=== PATIENT | male | born 1965 | race Caucasian/White ===

== ENCOUNTER 2018-07-26 01:47 | Emergency (ER) | payer SELFPAY ==
[2018-07-26] MEDS ORDERED: BUFFERED LIDOCAINE 10 ML SYRINGE SUBQ STA (01:58)
[2018-07-26] MEDS ORDERED: TETANUS/DIPHTHERIA/PERTUSSIS 0.5 ML SYRINGE IM ONE (03:13)
--- NOTE | 2018-07-26 03:16 | ED Physician Documentation ---
PD HPI LOWER EXT INJURY - Stated complaint Stated Complaint: L LEG LAC - Chief complaint Chief Complaint: Laceration - History obtained from History obtained from: Patient, Friend - History of Present Illness PD HPI LOW EXT INJURY LOCATION: Left, Lower leg Type of injury: Laceration Where injury occurred: Home Timing - onset: Today Timing - duration: Minutes Timing - details: Abrupt onset, Still present Improved by: Rest, Immobilization Worsened by: Moving, Palpating Associated symptoms: No: Weakness, Numbness, Tingling Contributing factors: No: Anticoagulated Similar symptoms before: Diagnosis (laceration) Recently seen: Not recently seen - Additional information Additional information: 52-year-old male was taking the garbage out when he went to step down on the garbage a broken bottle lacerated his left calf. He is in here now for suturing. He denies any numbness or tingling distal to the laceration. He is uncertain about his last tetanus. Review of Systems Constitutional: denies: Fever Nose: denies: Congestion Throat: denies: Sore throat Respiratory: denies: Cough GI: denies: Vomiting Skin: reports: Laceration (s) Musculoskeletal: reports: Extremity pain. denies: Neck pain, Back pain PD PAST MEDICAL HISTORY - Past Medical History Past Medical History: No - Past Surgical History Past Surgical History: Yes Ortho: Other - Present Medications Home Medications: Ambulatory Orders Medication Instructions Recorded Confirmed No Known Home Medications 07/26/18 07/26/18 - Allergies Allergies/Adverse Reactions: Allergies Allergy/AdvReac Type Severity Reaction Status Date / Time No Known Drug Allergies Allergy Verified 07/26/18 01:58 - Social History Does the pt smoke?: Yes Smoking Status: Current every day smoker Does the pt drink ETOH?: Yes Does the pt have substance abuse?: No - Immunizations Immunizations are current?: No PD ED PE NORMAL - Vitals Vital signs reviewed: Yes (hypertensive ) - General General: Alert and oriented X 3, No acute distress, Well developed/nourished - HEENT HEENT: Atraumatic, PERRL, EOMI - Respiratory Respiratory: No respiratory distress - Derm Derm: Normal color, Warm and dry, No rash - Extremities Extremities: No deformity, Other (6cm laceration to the mid calf on the left side laterally. Deep laceration to the facia of the muscle. Distal n/v is intact. The wound is clean and free of foreign body. ) - Neuro Neuro: Alert and oriented X 3, field sales executive 2-12 intact, No motor deficit, No sensory deficit, Normal speech Eye Opening: Spontaneous Motor: Obeys Commands Verbal: Oriented GCS Score: 15 - Psych Psych: Normal mood, Normal affect PD ED PE EXPANDED - Extremities CARMEN LE visual: 1 - laceration Results - Vitals Vitals: Vital Signs - 24 hr 07/26/18 07/26/18 01:52 03:18 Temperature 36.3 C L 36.3 C L Heart Rate 100 97 Respiratory 18 16 Rate Blood Pressure 160/113 H 173/114 H O2 Saturation 96 98 Oxygen O2 Source Room air Procedures - Laceration (location) left calf Length in cm: 6 Wound type: Linear, Into subcut fat, Clean Neurovascular status: Sensory intact, Motor intact, Vascular intact Anesthesia: Lidocaine 1%, With bicarb Wound Preparation: Hibiclens, Irrigated copiously NS, Wound explored, To the base Skin layer closure: Nylon, Dermabond (to the top layer), Interrupted (horizontal matress), Size #-0 - enter number (4-0) Other: Patient tolerated well, No complications, Neurovascular intact, Tetanus booster given Complexity: Simple PD MEDICAL DECISION MAKING - ED course Complexity details: re-evaluated patient, considered differential, d/w patient, d/w family ED course: 52-year-old male with a deep laceration to his left lateral calf has his wound cleaned and sutured he tolerates this well. Departure - Departure Disposition: 01 Home, Self Care Clinical Impression: Laceration of calf Condition: Stable Instructions: ED Laceration All Follow-Up: [facility] [Provider Group] Comments: Sutures should be removed in 10-14 days. Discharge Date/Time: 07/26/18 03:24
[2018-07-26 03:19] VITALS: BP 173/114
== END 2018-07-26 03:24 | disposition home or self-care (01) ==
LOC: ED 01:47
DX: S81.812A Laceration without foreign body, left lower leg, initial encounter (principal); W25.XXXA Contact with sharp glass, initial encounter; Y93.E9 Activity, other interior property and clothing maintenance; Y92.009 Unspecified place in unspecified non-institutional (private) residence as the place of occurrence of the external cause
CPT/HCPCS: 12002; 90471; 99282; 99283

== ENCOUNTER 2018-10-01 23:19 | Outpatient (CLI) | payer MEDICAID | END 2018-10-01 23:20 | disposition critical access hospital (66) | LOC: EMS 23:19 | PROVIDERS: ATTEND Surgery | DX: S09.90XA Unspecified injury of head, initial encounter (principal); M54.9 Dorsalgia, unspecified; M79.662 Pain in left lower leg; W10.8XXA Fall (on) (from) other stairs and steps, initial encounter; Y92.89 Other specified places as the place of occurrence of the external cause | CPT/HCPCS: A0425; A0429; A0999 ==

== ENCOUNTER 2018-10-01 23:35 | Emergency (ER) | payer MEDICAID ==
--- NOTE | 2018-10-02 00:32 | ED Physician Documentation ---
PD HPI HEAD INJURY - Stated complaint Stated Complaint: FALL DOWN STAIRS - Chief complaint Chief Complaint: Trauma Hd/Nk - History obtained from History obtained from: Patient, Friend, EMS - History of Present Illness Mechanism of head injury: Fell (he was witnessed to fall down some steps while intoxicated and strike the back of his head. Reported LOC for 30 seconds or so. No seizure. Awoke and was talkative. Seemed a bit confused. No vomiting. EMS called by friend. Patient did not want to come but EMS said they "talked him into it". Arrives on backboard with collar. Moving all extremities and is conversant, with smell of alcohol on breath.) Timing - onset: How many minutes ago (30), Today Location of injury: Back Quality of pain: Aching (he says he has just mild pain in back of head.) Associated symptoms: LOC. No: Nausea / vomiting, Neck pain, Paresthesias, Seizures Symptoms improve with: Rest Symptoms worsen with: Palpation. No: Movement Contributing factors: Intoxicated. No: Anticoagulated Similar symptoms before: Has not had sx before Recently seen: Not recently seen Review of Systems Constitutional: denies: Fever (denies recent illness) Nose: denies: Rhinorrhea / runny nose, Congestion Throat: denies: Sore throat Respiratory: denies: Cough GI: denies: Nausea, Vomiting Skin: reports: Abrasion (s) (back of head) Musculoskeletal: reports: Back pain (says he is hurting some left posterolateral chest/ribs area. Denies mid back pain nor abd pain.). denies: Neck pain Neurologic: denies: Focal weakness, Numbness PD PAST MEDICAL HISTORY - Past Medical History Past Medical History: No Neuro: None Endocrine/Autoimmune: None - Past Surgical History Past Surgical History: Yes Ortho: Other - Present Medications Home Medications: Ambulatory Orders Medication Instructions Recorded Confirmed Hydrocodone/Acetaminophen 1 - 2 each PO Q6H PRN #14 tablet 10/02/18 [Hydrocodon-Acetaminophen 5-325] Naproxen 500 mg PO BID #20 tablet 10/02/18 - Allergies Allergies/Adverse Reactions: Allergies Allergy/AdvReac Type Severity Reaction Status Date / Time No Known Drug Allergies Allergy Verified 10/02/18 02:17 - Social History Does the pt smoke?: Yes Smoking Status: Current every day smoker Does the pt drink ETOH?: Yes Does the pt have substance abuse?: No - Immunizations Immunizations are current?: No PD ED PE NORMAL - Vitals Vital signs reviewed: Yes - General General: Alert and oriented X 3 (he is able to answer questions. Some slight slurring of speech initially. Removed from board after neuro exam showing normal motor/sensory. ), No acute distress, Well developed/nourished - HEENT HEENT: Pharynx benign, Dentition benign, Other (small abrasion and swelling back of head. ) - Neck Neck: Supple, no meningeal sign, No bony TTP, No adenopathy - Cardiac Cardiac: RRR, No murmur - Respiratory Respiratory: Clear bilaterally, Other (mild tenderness posterolateral left mid ribs and inferoscapular area. ) - Abdomen Abdomen: Soft, Non tender - Back Back: No spinal TTP - Derm Derm: Normal color, Warm and dry - Extremities Extremities: No tenderness to palpate, Normal ROM s pain - Neuro Neuro: Alert and oriented X 3, No motor deficit, No sensory deficit Eye Opening: Spontaneous Motor: Obeys Commands Verbal: Oriented GCS Score: 15 Results - Vitals Vitals: Vital Signs - 24 hr 10/01/18 10/02/18 23:39 00:38 Temperature 36.1 C L Heart Rate 99 92 Respiratory 17 18 Rate Blood Pressure 161/98 H 119/105 H O2 Saturation 100 97 Oxygen O2 Source Room air PD MEDICAL DECISION MAKING - ED course Complexity details: re-evaluated patient (he was in ER not too long, and was able to ambulate to bathroom unassisted. He is alert and conversant. Still normal neuro. He is with friend. He asks to be discharged. I offer to have him stay here a bit longer to ensure no progressive of head injury symptoms and he says he wants to head home with friend. He seems able to understand concern and is aware of symptoms to watch for. I felt discharge was reasonable. ), considered differential (given the intoxication and report of LOC, I did suggest to patient to get CT head. He said he did not feel he needed it, as minimal to no headache and only at area of contusion. Will have him in ER awhile to ensure no progressive symptoms.), d/w patient Departure - Departure Disposition: 01 Home, Self Care Clinical Impression: Scalp contusion Qualifiers: Encounter type: initial encounter Qualified Code(s): S00.03XA - Contusion of scalp, initial encounter Mild concussion Qualifiers: Encounter type: initial encounter Loss of consciousness presence/duration: with LOC of 30 min or less Qualified Code(s): S06.0X1A - Concussion with loss of consciousness of 30 minutes or less, initial encounter Condition: Stable Record reviewed to determine appropriate education?: Yes Instructions: ED Head Injury Closed Comments: Tylenol or ibuprofen if needed for headache. No further alcohol tonight. Return if worsening headache, confusion, repetitive vomiting, focal weakness or other concern. Discharge Date/Time: 10/02/18 00:38
[2018-10-02 00:39] VITALS: BP 119/105
== END 2018-10-02 00:38 | disposition home or self-care (01) ==
LOC: EDUNIT# → ED 23:35
DX: S06.0X1A Concussion with loss of consciousness of 30 minutes or less, initial encounter (principal); S00.03XA Contusion of scalp, initial encounter; S00.01XA Abrasion of scalp, initial encounter; W10.9XXA Fall (on) (from) unspecified stairs and steps, initial encounter; F10.920 Alcohol use, unspecified with intoxication, uncomplicated
CPT/HCPCS: 80053; 80320; 83690; 85025; 99283

== ENCOUNTER 2018-10-02 00:59 | Emergency (ER) | payer MEDICAID ==
[2018-10-02] MEDS ORDERED: ACETAMINOPHEN 325 MG TABLET PO STA (01:52)
[2018-10-02] MEDS ORDERED: KETOROLAC 60 MG/2 ML VIAL IM STA (01:52)
--- NOTE | 2018-10-02 02:03 | XRAY Report ---
Reason: left rib pain after falling down stairs Procedure Date: 10/02/2018 Accession Number: [id number] / [id number] Procedure: XR - Chest 2 View X-Ray CPT Code: 44350 FULL RESULT: EXAM: CHEST RADIOGRAPHY EXAM DATE: 10/02/2018 01:45 AM. CLINICAL HISTORY: Left-sided lower pain, trauma, COMPARISON: None. TECHNIQUE: 2 views. FINDINGS: Lungs/Pleura: No focal opacities evident. No pleural effusion. No pneumothorax. Normal volumes. Mediastinum: Heart and mediastinal contours are unremarkable. Other: Right hemidiaphragm eventration. Moderate thoracic degenerative change. IMPRESSION: No acute cardiopulmonary abnormality demonstrated. RADIA
--- NOTE | 2018-10-02 02:28 | ED Physician Documentation ---
PD HPI Fall - Stated complaint Stated Complaint: L RIB PX - Chief complaint Chief Complaint: General - History obtained from History obtained from: Patient - History of Present Illness Mechanism of injury: Lost balance Fall distance: Standing position Where injury occurred: Home (he was just seen in ED and asked to be discharged. See prior ER note. In waiting room, a family member arrived and convinced patient to be seen again. Patient with more pain in posterior left chest now. Still denies general headache.) Injury(ies) location: Head, Chest, Back Recently seen: Emergency Dept (just 1/2 hour ago, so please refer to that note.) Review of Systems Skin: reports: Abrasion (s). denies: Laceration (s) PD PAST MEDICAL HISTORY - Past Medical History Past Medical History: No - Past Surgical History Past Surgical History: Yes Ortho: Other - Present Medications Home Medications: Ambulatory Orders Medication Instructions Recorded Confirmed Hydrocodone/Acetaminophen 1 - 2 each PO Q6H PRN #14 tablet 10/02/18 [Hydrocodon-Acetaminophen 5-325] Naproxen 500 mg PO BID #20 tablet 10/02/18 - Allergies Allergies/Adverse Reactions: Allergies Allergy/AdvReac Type Severity Reaction Status Date / Time No Known Drug Allergies Allergy Verified 10/02/18 02:17 - Social History Does the pt smoke?: Yes Smoking Status: Current every day smoker Does the pt drink ETOH?: Yes Does the pt have substance abuse?: No - Immunizations Immunizations are current?: No PD ED PE NORMAL - Vitals Vital signs reviewed: Yes - General General: Alert and oriented X 3, No acute distress, Well developed/nourished - HEENT HEENT: Other (same abrasion with mild swelling occiput as recent visit. Not expanding. ) - Neck Neck: Supple, no meningeal sign, No bony TTP, No adenopathy - Respiratory Respiratory: Clear bilaterally - Abdomen Abdomen: Soft, Non tender - Back Back: No CVA TTP, No spinal TTP (but some tenderness still left posterolateral back/ribs without crepitance. ) - Extremities Extremities: No tenderness to palpate, Normal ROM s pain Results - Vitals Vitals: Vital Signs - 24 hr 10/02/18 10/02/18 10/02/18 01:01 02:16 02:53 Temperature 36.4 C L 36.5 C Heart Rate 97 87 90 Respiratory 18 16 17 Rate Blood Pressure 167/95 H 138/95 H 165/97 H O2 Saturation 100 100 100 Oxygen O2 Source Room air - Rads (name of study) chest xray Radiology: Prelim report reviewed (no fractures nor acute lung injury. ), EMP read contemporaneously, See rad report PD MEDICAL DECISION MAKING - ED course Complexity details: considered differential (Patient without concussive symptoms here and still prefers not having head CT. He is alert and normal neuro that I think that a CT is not necessary at this point, and he will be with others at home. ), d/w patient Departure - Departure Disposition: Home, Self Care Clinical Impression: Accidental fall Qualifiers: Encounter type: initial encounter Qualified Code(s): W19.XXXA - Unspecified fall, initial encounter Chest wall contusion Qualifiers: Encounter type: initial encounter Laterality: left Qualified Code(s): S20.212A - Contusion of left front wall of thorax, initial encounter Scalp contusion Qualifiers: Encounter type: initial encounter Qualified Code(s): S00.03XA - Contusion of scalp, initial encounter Condition: Stable Record reviewed to determine appropriate education?: Yes Instructions: ED Contusion Chest Wall Prescriptions: Hydrocodone/Acetaminophen [Hydrocodon-Acetaminophen 5-325] 1 - 2 each PO Q6H PRN #14 tablet PRN Reason: pain Naproxen 500 mg PO BID #20 tablet Comments: There are no rib fractures seen on x-ray. This is pretty good for picking up on displaced fractures. Is not completely accurate so there is the potential for nondisplaced fracture of the rib. This would get treated with anti- inflammatories, modified activity and pain medicine if needed. Most likely is just some bruising and strain of the chest wall and would be treated the same way and should improve over several days to week. There is no signs of injury to the lung itself and the x-ray is very good for that. Discharge Date/Time: 10/02/18 02:55
[2018-10-02 02:55] VITALS: BP 165/97
== END 2018-10-02 02:55 | disposition home or self-care (01) ==
LOC: ED 00:59
DX: S06.0X1A Concussion with loss of consciousness of 30 minutes or less, initial encounter (principal); S20.212A Contusion of left front wall of thorax, initial encounter; S00.03XA Contusion of scalp, initial encounter; S00.01XA Abrasion of scalp, initial encounter; W10.9XXA Fall (on) (from) unspecified stairs and steps, initial encounter; F10.920 Alcohol use, unspecified with intoxication, uncomplicated; F17.200 Nicotine dependence, unspecified, uncomplicated
CPT/HCPCS: 71046; 96372; 99283; A9270

== ENCOUNTER 2019-01-13 08:00 | Outpatient (CLI) | payer MEDICAID ==
[2019-01-13 19:07] LABS: BASOPHILS # (AUTO) 0.1 10^3/uL (0.0-0.1); BASOPHILS % (AUTO) 0.7 %; EOSINOPHILS % (AUTO) 0.2 %; LYMPHOCYTES % (AUTO) 22.6 %; MEAN CORPUSCULAR HEMOGLOBIN 32.8 pg (27.0-31.0); MEAN CORPUSCULAR HGB CONC 33.3 g/dL (32.0-36.0); MEAN CORPUSCULAR VOLUME 98.5 fL (80.0-94.0); MEAN PLATELET VOLUME 10.5 fL (7.4-11.4); MONOCYTES # (AUTO) 0.7 10^3/uL (0.0-1.0); MONOCYTES % (AUTO) 7.8 %; NEUTROPHILS # (AUTO) 5.9 10^3/uL (1.5-6.6); NEUTROPHILS % (AUTO) 68.2 %; PLT - PLATELET COUNT 264 10^3/uL (130-450); RED BLOOD COUNT 4.58 10^6/uL (4.70-6.10); RED CELL DISTRIBUTION WIDTH 14.1 % (12.0-15.0); WHITE BLOOD COUNT 8.7 x10^3/uL (4.8-10.8)
[2019-01-13 19:40] LABS: ALBUMIN 4.4 g/dL (3.2-5.5); ALBUMIN/GLOBULIN RATIO 1.2 (1.0-2.2); ALKALINE PHOSPHATASE 61 IU/L (42-121); ALT ALANINE AMINOTRANSFERASE 15 IU/L (10-60); AST ASPARTATE AMINOTRANSFERASE 21 IU/L (10-42); BILIRUBIN,TOTAL 0.8 mg/dL (0.2-1.0); BUN - BLOOD UREA NITROGEN 13 mg/dL (6-20); CALCIUM 9.6 mg/dL (8.5-10.3); CARBON DIOXIDE - CO2 25 mmol/L (21-32); CHLORIDE 105 mmol/L (101-111); CHOL/HDL RATIO 1.8 (<5.0); CHOLESTEROL 197 mg/dL; CREATININE 0.7 mg/dL (0.6-1.2); GFR - MDRD 117 (>89); GLUCOSE 100 mg/dL (70-100); HDL CHOLESTEROL 111 mg/dL; LDL CHOLESTEROL,CALCULATED 77 mg/dL; LDL/HDL RATIO 0.7 (<3.6); SODIUM 140 mmol/L (135-145); TOTAL PROTEIN 8.1 g/dL (6.7-8.2); VLDL CHOLESTEROL 9 mg/dL
[2019-01-13 19:55] LABS: HB2 TOTAL 15.6 g/dL; HEMOGLOBIN A1C 0.49 g/dL
== END 2019-01-13 23:59 | disposition home or self-care (01) ==
LOC: LAB.N 08:00
PROVIDERS: ATTEND Family Medicine
DX: I10 Essential (primary) hypertension (principal); Z13.1 Encounter for screening for diabetes mellitus
CPT/HCPCS: 36415; 80050; 80061; 83036; 83721

== ENCOUNTER 2020-03-09 08:00 | Outpatient (CLI) | payer MEDICAID | END 2020-03-09 23:59 | disposition home or self-care (01) | LOC: LAB.R 08:00 | PROVIDERS: ATTEND Family Medicine | DX: Z20.2 Contact with and (suspected) exposure to infections with a predominantly sexual mode of transmission (principal) | CPT/HCPCS: 81599; 87491; 87591 ==

== ENCOUNTER 2020-06-22 11:45 | Outpatient (CLI) | payer MEDICAID ==
[2020-06-22 18:45] LABS: BASOPHILS # (AUTO) 0.1 10^3/uL (0.0-0.1); BASOPHILS % (AUTO) 0.6 %; EOSINOPHILS # (AUTO) 0.1 10^3/uL (0.0-0.7); EOSINOPHILS % (AUTO) 0.9 %; HGB - HEMOGLOBIN 14.6 g/dL (14.0-18.0); LYMPHOCYTES # (AUTO) 3.3 10^3/uL (1.5-3.5); MEAN CORPUSCULAR HEMOGLOBIN 33.3 pg (27.0-31.0); MEAN CORPUSCULAR HGB CONC 33.6 g/dL (32.0-36.0); MEAN CORPUSCULAR VOLUME 99.1 fL (80.0-94.0); MEAN PLATELET VOLUME 9.9 fL (7.4-11.4); MONOCYTES # (AUTO) 0.8 10^3/uL (0.0-1.0); MONOCYTES % (AUTO) 7.4 %; NEUTROPHILS # (AUTO) 6.7 10^3/uL (1.5-6.6); NEUTROPHILS % (AUTO) 60.6 %; PLT - PLATELET COUNT 290 10^3/uL (130-450); RED BLOOD COUNT 4.39 10^6/uL (4.70-6.10); RED CELL DISTRIBUTION WIDTH 13.4 % (12.0-15.0); WHITE BLOOD COUNT 11.1 x10^3/uL (4.8-10.8)
[2020-06-22 19:40] LABS: ALBUMIN 4.4 g/dL (3.2-5.5); ALBUMIN/GLOBULIN RATIO 1.2 (1.0-2.2); ALKALINE PHOSPHATASE 62 IU/L (42-121); ALT ALANINE AMINOTRANSFERASE 32 IU/L (10-60); AST ASPARTATE AMINOTRANSFERASE 32 IU/L (10-42); BILIRUBIN,TOTAL 1.1 mg/dL (0.2-1.0); BUN - BLOOD UREA NITROGEN 24 mg/dL (6-20); CALCIUM 9.8 mg/dL (8.5-10.3); CARBON DIOXIDE - CO2 25 mmol/L (21-32); CHLORIDE 99 mmol/L (101-111); CHOL/HDL RATIO 1.6 (<5.0); CHOLESTEROL 199 mg/dL; CREATININE 0.7 mg/dL (0.6-1.2); GLUCOSE 84 mg/dL (70-100); HDL CHOLESTEROL 125 mg/dL; TOTAL PROTEIN 8.2 g/dL (6.7-8.2)
== END 2020-06-22 23:59 | disposition home or self-care (01) ==
LOC: LAB.WCP 11:45
PROVIDERS: ATTEND Family Medicine
DX: E66.9 Obesity, unspecified (principal); I10 Essential (primary) hypertension; F17.200 Nicotine dependence, unspecified, uncomplicated
CPT/HCPCS: 36415; 80050; 80061; 83721; 84153

== ENCOUNTER 2020-07-28 01:42 | Emergency (ER) | payer MEDICAID ==
[2020-07-28] MEDS ORDERED: HYDROcod/ACETAM 5/325 MG TABLET PO STA (02:33)
--- NOTE | 2020-07-28 02:36 | ED Physician Documentation ---
PD HPI LOWER EXT INJURY - Stated complaint Stated Complaint: R TOE PX, BLEEDING - Chief complaint Chief Complaint: Ext Problem - History obtained from History obtained from: Patient, Caregiver - History of Present Illness PD HPI LOW EXT INJURY LOCATION: Right, Toe (great) Type of injury: Other (unkonw) Where injury occurred: Home Timing - onset: How many days ago (3) Timing - duration: Days (3) Timing - details: Gradual onset, Still present, Waxing and waning Pain level max: >10 Pain level now: 8 Improved by: Rest Worsened by: Moving, Palpating Associated symptoms: Other (bleeding from under the nail.). No: Weakness, Numbness, Tingling, Swelling Similar symptoms before: Has not had sx before Recently seen: Not recently seen - Additional information Additional information: 54-year-old male comes into the emergency department complaining of right great toe pain. He has some blood from underneath the nail and he has severe pain anytime the nail is touched or is even looked at. He comes into the emergency department with some anger and wants his pain to go away. He seems a bit unreasonable about this. He appears to be in pain. He gives a history that his partner has been trimming his nail for the past year because of an ingrown toenail that was trimmed about 3 days ago and then he had something happen where he went to put his shoe on and lifted a portion of the nail that is now bleeding and he is in severe pain. Review of Systems Constitutional: denies: Fever Respiratory: denies: Cough GI: denies: Vomiting PD PAST MEDICAL HISTORY - Past Medical History Past Medical History: Yes Cardiovascular: Hypertension - Past Surgical History Past Surgical History: Yes Ortho: Other - Present Medications Home Medications: Ambulatory Orders Medication Instructions Recorded Confirmed HYDROcod/ACETAM 5/325 [[place] 5/325] 1 - 2 ea PO Q6H PRN #12 tab 07/28/20 Losartan Potassium [Cozaar] 100 mg PO DAILY 07/28/20 07/28/20 hydroCHLOROthiazide 50 mg PO DAILY 07/28/20 07/28/20 [Hydrochlorothiazide] - Allergies Allergies/Adverse Reactions: Allergies Allergy/AdvReac Type Severity Reaction Status Date / Time No Known Drug Allergies Allergy Verified 07/28/20 01:56 - Social History Does the pt smoke?: No Smoking Status: Never smoker Does the pt drink ETOH?: Yes Does the pt have substance abuse?: No - Immunizations Immunizations are current?: No PD ED PE NORMAL - Vitals Vital signs reviewed: Yes - General General: Alert and oriented X 3, Well developed/nourished, Other (The patient appears to be 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 and short temper) - HEENT HEENT: Atraumatic, PERRL, EOMI - Respiratory Respiratory: No respiratory distress - Derm Derm: Normal color, Warm and dry, No rash - Extremities Extremities: No deformity, No edema, Other (Right great toe is partially avulsed distally and extremely painful for the patient there is an ingrown toenail on that side and there does not appear to be any infection involved with this.) - Neuro Neuro: Alert and oriented X 3, patient relations manager 2-12 intact, No motor deficit, No sensory deficit, Normal speech Eye Opening: Spontaneous Motor: Obeys Commands Verbal: Oriented GCS Score: 15 - Psych Psych: Other (Mood is painful affect is flat) Results - Vitals Vitals: Vital Signs - 24 hr 07/28/20 07/28/20 07/28/20 01:53 05:05 05:51 Temperature 36.4 C L 36.9 C 36.9 C Heart Rate 117 H 98 86 Respiratory 16 18 18 Rate Blood Pressure 135/81 H 146/76 H 154/102 H O2 Saturation 97 100 98 Oxygen O2 Source Room air Procedures - General procedure General procedure: Ingrown toenail removal: With use of a 50-50 mixture of 1% lidocaine and 1/2% bupivacaine a digital block is performed on the recruit right great toe after preparation with chlorhexidine. The toe was draped and cleansed with Hibiclens and the nail is sectioned medially and the medial section is removed. PD MEDICAL DECISION MAKING - ED course Complexity details: reviewed results, re-evaluated patient, considered differential, d/w patient ED course: 54-year-old male presents to the emergency department with severe pain in his left great toe. Right great toe. It looks like he has partially avulsed the nail. When he first arrived he would not allow us to touch this and wanted the pain to be gone. We did provide some pain medication and the patient stated this did not seem to help much but he was in a little better spirits and was a ble to provide more history and apparently his partner has been trimming his nails for the past year because of an ingrown toenail and he does not have any inflammation to this now but has recently had the nail clipped and now is a partial avulsion which he thinks might of happened when he put his shoe on. There is some bleeding underneath the nail and the nail appears to be grown in on the medial aspect. There is no current infection.I did offer to section the nail and the patient readily accepted this.This was performed with a digital block and the patient tolerated this well. The nail does appear to be partially avulsed. Departure - Departure Disposition: 01 Home, Self Care Clinical Impression: Ingrown toenail without infection Nail avulsion of toe Qualifiers: Encounter type: initial encounter Qualified Code(s): S91.209A - Unspecified open wound of unspecified toe(s) with damage to nail, initial encounter Condition: Stable Instructions: ED Ingrown Toenail Excised, ED Avulsion Nail Complete Follow-Up: Hermilo Ulloa MD [Primary Care Provider] - Prescriptions: HYDROcod/ACETAM 5/325 [[place] 5/325] 1 - 2 ea PO Q6H PRN #12 tab PRN Reason: Pain Discharge Date/Time: 07/28/20 05:52
[2020-07-28] MEDS ORDERED: BUFFERED LIDOCAINE 10 ML SYRINGE SUBQ STA (04:43)
[2020-07-28] MEDS ORDERED: BUPIVACAINE 0.5% PF 10 ML VIAL SUBQ STA (04:43)
[2020-07-28 05:53] VITALS: BP 154/102
--- NOTE | 2020-07-28 08:50 | XRAY Report ---
PROCEDURE: Toe(s) RT INDICATIONS: great toe pain nail bleeding TECHNIQUE: 3 views of the first toe(s) acquired. COMPARISON: None FINDINGS: Bones: No fractures or dislocations. No suspicious bony lesions. Soft tissues: No suspicious soft tissue densities. IMPRESSION: No trauma found, no bony remodeling identified in the subungual space. Reviewed by: Michele Bhakta MD on 07/28/2020 8:48 AM [facility] Approved by: Michele Bhakta MD on 07/28/2020 8:48 AM [facility] Station ID: [id number]
== END 2020-07-28 05:52 | disposition home or self-care (01) ==
LOC: ED 01:42
DX: L60.0 Ingrowing nail (principal); S91.201A Unspecified open wound of right great toe with damage to nail, initial encounter; W22.8XXA Striking against or struck by other objects, initial encounter; Y93.89 Activity, other specified; Y92.009 Unspecified place in unspecified non-institutional (private) residence as the place of occurrence of the external cause; I10 Essential (primary) hypertension
CPT/HCPCS: 11765; 73660; 99282; 99283; A9270

== ENCOUNTER 2020-12-08 22:02 | Emergency (ER) | payer MEDICAID ==
--- NOTE | 2020-12-08 22:13 | ED Physician Documentation ---
PD HPI HEAD INJURY - Stated complaint Stated Complaint: FELL OFF STAIRS/HEAD INJ - Chief complaint Chief Complaint: Trauma Hd/Nk - History obtained from History obtained from: Patient, Family (spouse (in ED at bedside)) - History of Present Illness Mechanism of head injury: Fell Where head injury occurred: Home Timing - onset: How many hours ago (2) Pain level now: 2 Location of injury: Left Quality of pain: Pain Associated symptoms: AMS (patient's noted mild confusion after he fell), Neck pain. 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 struck head but denies LOC, denies ROOT. 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 Patient's chief complaint is pain from left side of neck to left shoulder (he points to left mastoid process regarding the origin of the neck pain and then points along the left trapezial ridge) Review of Systems Eyes: denies: Loss of vision, Decreased vision Cardiac: reports: Reviewed and negative Respiratory: reports: Reviewed and negative Skin: reports: Abrasion (s) (forehead) Musculoskeletal: reports: Neck pain, Joint pain (left shoulder) Neurologic: reports: Head injury. denies: Generalized weakness, Focal weakness, Numbness, Headache, LOC PD PAST MEDICAL HISTORY - Past Medical History Cardiovascular: Hypertension - Past Surgical History Past Surgical History: Yes Ortho: Other - Present Medications Home Medications: Ambulatory Orders Medication Instructions Recorded Confirmed HYDROcod/ACETAM 5/325 [[place] 5/325] 1 - 2 ea PO Q6H PRN #12 tab 07/28/20 Losartan Potassium [Cozaar] 100 mg PO DAILY 07/28/20 07/28/20 hydroCHLOROthiazide 50 mg PO DAILY 07/28/20 07/28/20 [Hydrochlorothiazide] Cyclobenzaprine [Flexeril] 10 mg PO TID PRN #20 tablet 12/08/20 Ibuprofen [Motrin] 600 mg PO Q6H PRN #20 tab 12/08/20 - Allergies Allergies/Adverse Reactions: Allergies Allergy/AdvReac Type Severity Reaction Status Date / Time No Known Drug Allergies Allergy Verified 07/28/20 01:56 - Social History Does the pt smoke?: Yes Smoking Status: Current every day smoker Does the pt drink ETOH?: Yes Does the pt have substance abuse?: No - Immunizations Immunizations are current?: No PD ED PE NORMAL - Vitals Vital signs reviewed: Yes - General General: Alert and oriented X 3, No acute distress, Well developed/nourished, Other (patient appears and sounds angry during HPI/ROS) - HEENT HEENT: PERRL, EOMI, Other (left forehead abrasion, mild TTP, mild swelling) - Neck Neck: No bony TTP - Cardiac Cardiac: RRR, No murmur - Respiratory Respiratory: No respiratory distress, Clear bilaterally - Extremities Extremities: No deformity, No tenderness to palpate, Normal ROM s pain, No edema - Neuro Neuro: Alert and oriented X 3, behavior support specialist 2-12 intact, No motor deficit, No sensory deficit Eye Opening: Spontaneous Motor: Obeys Commands Verbal: Oriented GCS Score: 15 Results - Vitals Vitals: Oxygen O2 Source Room air - Rads (name of study) CTH Radiology: Prelim report reviewed, See rad report PD MEDICAL DECISION MAKING - ED course Complexity details: reviewed results, re-evaluated patient, considered differential, d/w patient, d/w family ED course: unremarkable CTH. CT neck is not performed, as his pain is distinctly limited to left mastoid process (without TTP) and there is no neck tenderness on exam. He also indicates the pain is along the trapezius ridge, and there is no bony tenderness including left shoulder and along the left clavicle. This distribution is highly suggestive of muscle strain rather than bony injury. Departure - Departure Disposition: 01 Home, Self Care Clinical Impression: Skin tear Cervical sprain Qualifiers: Encounter type: initial encounter Qualified Code(s): S13.9XXA - Sprain of joints and ligaments of unspecified parts of neck, initial encounter Fall Qualifiers: Encounter type: initial encounter Qualified Code(s): W19.XXXA - Unspecified fall, initial encounter Condition: Good Instructions: ED Abrasion, ED Sprain Strain Neck Follow-Up: Hermilo Ulloa MD [Primary Care Provider] - (3-5 days if not improving) Prescriptions: Cyclobenzaprine [Flexeril] 10 mg PO TID PRN #20 tablet PRN Reason: Spasms Ibuprofen [Motrin] 600 mg PO Q6H PRN #20 tab PRN Reason: Pain Discharge Date/Time: 12/09/20 00:02
[2020-12-08] MEDS ORDERED: CYCLOBENZAPRINE 10 MG TABLET PO STA (22:23)
[2020-12-08] MEDS ORDERED: IBUPROFEN 600 MG TABLET PO STA (22:23)
[2020-12-09 00:04] VITALS: BP 138/88
--- NOTE | 2020-12-09 08:09 | CT Report ---
PROCEDURE: HEAD WO INDICATIONS: fall, head injury, LOC TECHNIQUE: Noncontrast 4.5 mm thick angled axial sections acquired from the foramen magnum to the vertex. For r adiation dose reduction, the following was used: automated exposure control, adjustment of mA and/or kV according to patient size. COMPARISON: None. FINDINGS: Image quality: Excellent. CSF spaces: Basal cisterns are patent. No extra-axial fluid collections. Ventricles are normal in size and shape. Brain: No midline shift. No intracranial masses or hemorrhage. Osorio-white matter interface is norm al. Skull and face: Calvarium and visualized facial bones are intact, without suspicious lesions. Sinuses: Visualized sinuses and mastoids are clear. IMPRESSION: 1. No CT evidence of acute intracranial trauma. 2. No fracture or significant soft tissue trauma. 3. Concordant with preliminary report. Reviewed by: Norma Douglas MD on 12/09/2020 8:08 AM PDT Approved by: Norma Douglas MD on 12/09/2020 8:08 AM PDT Station ID: [id number]
== END 2020-12-09 00:02 | disposition home or self-care (01) ==
LOC: ED 22:02
DX: S00.81XA Abrasion of other part of head, initial encounter (principal); S13.9XXA Sprain of joints and ligaments of unspecified parts of neck, initial encounter; W10.9XXA Fall (on) (from) unspecified stairs and steps, initial encounter; Y92.009 Unspecified place in unspecified non-institutional (private) residence as the place of occurrence of the external cause; I10 Essential (primary) hypertension; F17.200 Nicotine dependence, unspecified, uncomplicated
CPT/HCPCS: 70450; 99284; A9270

== ENCOUNTER 2021-05-13 15:00 | Outpatient (CLI) | payer MEDICAID | END 2021-05-13 23:59 | disposition home or self-care (01) | LOC: LAB.N 15:00 | PROVIDERS: ATTEND Family Medicine | DX: U07.1 COVID-19 (principal) | CPT/HCPCS: 87275; 87276 ==

== ENCOUNTER 2021-08-15 10:57 | Outpatient (CLI) | payer MEDICAID ==
[2021-08-15 18:01] LABS: BASOPHILS # (AUTO) 0.1 10^3/uL (0.0-0.1); BASOPHILS % (AUTO) 0.8 %; EOSINOPHILS # (AUTO) 0.2 10^3/uL (0.0-0.7); EOSINOPHILS % (AUTO) 1.9 %; HCT - HEMATOCRIT 43.3 % (42.0-52.0); HGB - HEMOGLOBIN 14.4 g/dL (14.0-18.0); LYMPHOCYTES # (AUTO) 3.1 10^3/uL (1.5-3.5); LYMPHOCYTES % (AUTO) 28.7 %; MEAN CORPUSCULAR HEMOGLOBIN 32.4 pg (27.0-31.0); MEAN CORPUSCULAR HGB CONC 33.3 g/dL (32.0-36.0); MEAN CORPUSCULAR VOLUME 97.5 fL (80.0-94.0); MEAN PLATELET VOLUME 9.8 fL (7.4-11.4); MONOCYTES # (AUTO) 0.8 10^3/uL (0.0-1.0); MONOCYTES % (AUTO) 7.1 %; NEUTROPHILS # (AUTO) 6.5 10^3/uL (1.5-6.6); NEUTROPHILS % (AUTO) 61.3 %; PLT - PLATELET COUNT 320 10^3/uL (130-450); RED BLOOD COUNT 4.44 10^6/uL (4.70-6.10); RED CELL DISTRIBUTION WIDTH 13.6 % (12.0-15.0); WHITE BLOOD COUNT 10.6 x10^3/uL (4.8-10.8)
[2021-08-15 18:15] LABS: ALBUMIN 4.1 g/dL (3.2-5.5); ALBUMIN/GLOBULIN RATIO 1.1 (1.0-2.2); ALKALINE PHOSPHATASE 65 IU/L (42-121); ALT ALANINE AMINOTRANSFERASE 27 IU/L (10-60); AST ASPARTATE AMINOTRANSFERASE 32 IU/L (10-42); BILIRUBIN,TOTAL 0.6 mg/dL (0.2-1.0); BUN - BLOOD UREA NITROGEN 13 mg/dL (6-20); CALCIUM 9.8 mg/dL (8.5-10.3); CARBON DIOXIDE - CO2 27 mmol/L (21-32); CHLORIDE 99 mmol/L (101-111); CHOL/HDL RATIO 1.9 (<5.0); CHOLESTEROL 190 mg/dL; CREATININE 0.9 mg/dL (0.6-1.2); GFR - MDRD 87 (>89); GLUCOSE 99 mg/dL (70-100); HDL CHOLESTEROL 101 mg/dL; LDL CHOLESTEROL,CALCULATED 74 mg/dL; LDL/HDL RATIO 0.7 (<3.6); POTASSIUM 4.4 mmol/L (3.5-5.0); SODIUM 139 mmol/L (135-145); TRIGLYCERIDES 77 mg/dL; VLDL CHOLESTEROL 15 mg/dL
[2021-08-15 18:26] LABS: THYROID STIMULATING HORMONE 1.98 uIU/mL (0.34-5.60)
== END 2021-08-15 10:58 | disposition home or self-care (01) ==
LOC: LAB.N 10:57
PROVIDERS: ATTEND Family Medicine
DX: I10 Essential (primary) hypertension (principal); F17.200 Nicotine dependence, unspecified, uncomplicated; Z12.5 Encounter for screening for malignant neoplasm of prostate
CPT/HCPCS: 36415; 80050; 80061; 83721; 84153

== ENCOUNTER 2022-11-09 16:29 | Outpatient (CLI) | payer MEDICAID ==
[2022-11-09 20:43] LABS: BASOPHILS # (AUTO) 0.1 10^3/uL (0.0-0.1); BASOPHILS % (AUTO) 0.9 %; EOSINOPHILS # (AUTO) 0.1 10^3/uL (0.0-0.7); EOSINOPHILS % (AUTO) 0.6 %; HCT - HEMATOCRIT 41.5 % (42.0-52.0); LYMPHOCYTES # (AUTO) 3.3 10^3/uL (1.5-3.5); LYMPHOCYTES % (AUTO) 29.7 %; MEAN CORPUSCULAR HEMOGLOBIN 32.6 pg (27.0-31.0); MEAN CORPUSCULAR HGB CONC 33.7 g/dL (32.0-36.0); MEAN CORPUSCULAR VOLUME 96.5 fL (80.0-94.0); MEAN PLATELET VOLUME 9.8 fL (7.4-11.4); MONOCYTES % (AUTO) 9.2 %; NEUTROPHILS # (AUTO) 6.5 10^3/uL (1.5-6.6); NEUTROPHILS % (AUTO) 59.3 %; PLT - PLATELET COUNT 357 10^3/uL (130-450)
[2022-11-09 20:57] LABS: ALBUMIN/GLOBULIN RATIO 0.8 (1.0-2.2); ALKALINE PHOSPHATASE 56 IU/L (42-121); ALT ALANINE AMINOTRANSFERASE 31 IU/L (10-60); AST ASPARTATE AMINOTRANSFERASE 35 IU/L (10-42); BILIRUBIN,TOTAL 0.6 mg/dL (0.2-1.0); BUN - BLOOD UREA NITROGEN 15 mg/dL (6-20); CALCIUM 9.3 mg/dL (8.5-10.3); CARBON DIOXIDE - CO2 23 mmol/L (21-32); CHLORIDE 97 mmol/L (101-111); CHOL/HDL RATIO 1.8 (<5.0); CHOLESTEROL 196 mg/dL; CREATININE 1.1 mg/dL (0.6-1.2); GFR - MDRD 69 (>89); GLUCOSE 97 mg/dL (70-100); HDL CHOLESTEROL 111 mg/dL; LDL CHOLESTEROL,CALCULATED 64 mg/dL; LDL/HDL RATIO 0.6 (<3.6); POTASSIUM 3.9 mmol/L (3.5-5.0); SODIUM 133 mmol/L (135-145); TRIGLYCERIDES 104 mg/dL; VLDL CHOLESTEROL 21 mg/dL
[2022-11-09 21:09] LABS: THYROID STIMULATING HORMONE 2.11 uIU/mL (0.34-5.60)
== END 2022-11-09 16:30 | disposition home or self-care (01) ==
LOC: LAB.N 16:29
PROVIDERS: ATTEND Family Medicine
DX: I10 Essential (primary) hypertension (principal); R00.0 Tachycardia, unspecified; F10.10 Alcohol abuse, uncomplicated; E66.01 Morbid (severe) obesity due to excess calories; Z12.5 Encounter for screening for malignant neoplasm of prostate
CPT/HCPCS: 36415; 80050; 80061; 83721; 84153